=== PATIENT | female | born 1975 | race Caucasian/White ===

== ENCOUNTER → 2017-06-05 | Outpatient (REF) | payer BC ==
[2015-01-21 12:08] VITALS: BMI 23.4
[~2017-06-05] MED LIST: ACET500T68 PO; ASCO-182 PO; CALC-652 PO; CHOL500045 PO; FERR325T24 PO; IBUP-56 PO; IBUP800T37 PO; MULT-1335 PO; PER PO; SULF-198 PO; VITA1CAP46 PO
== END ==
LOC: ZZSENDIN 10:51
PROVIDERS: ATTEND Obstetrics & Gynecology
DX: K29.60 Other gastritis without bleeding (principal)
CPT/HCPCS: 86677

== ENCOUNTER → 2017-09-08 | Outpatient (CLI) | payer BC ==
[2015-01-21 12:08] VITALS: BMI 23.4
--- NOTE | 2017-09-09 08:20 | RADIOLOGY IMAGING REPORT ---
FACILITY: [facility] - [place] PATIENT NAME: THOMAS GREENE : [id number] MR: [id number] V: [id number] EXAM DATE: [id number] ORDERING PHYSICIAN: ALVIN IZQUIERDO TECHNOLOGIST: Delia Apodaca PROCEDURE:BILATERAL DIGITAL SCREENING MAMMOGRAM WITH CAD ASSISTED INTERPRETATION & 3D TOMOSYNTHESIS COMPARISON:Prior mammograms 09/03/16, 12/20/14, 12/14/14. INDICATIONS:SCREENING FINDINGS: A small amount of fibroglandular tissue is seen throughout the breasts. The parenchymal pattern has remained stable allowing for difference in mammographic technique & patient positioning. There is no evidence of malignant appearing mass, malignant appearing calcifications or other secondary sign of malignancy in either breast. DIAGNOSTIC CATEGORY 1--NEGATIVE. RECOMMENDATIONS: ROUTINE MAMMOGRAM AND CLINICAL EVALUATION. IMPRESSION: BIRADS 1: Negative. No significant abnormality is seen. Dictated by: Jacquie Garcia M.D. on 09/08/2017 at 16:13 Transcribed by: JUAN MIGUEL on 09/08/2017 at 16:22 Approved by: Jacquie Garcia M.D. on 09/09/2017 at 8:19 [facility]
== END ==
LOC: MAMO 02:03
PROVIDERS: ATTEND Obstetrics & Gynecology
DX: Z12.31 Encounter for screening mammogram for malignant neoplasm of breast (principal)
CPT/HCPCS: 77063; 77067

== ENCOUNTER → 2017-12-15 | Outpatient (CLI) | payer BC ==
[2015-01-21 12:08] VITALS: BMI 23.4
[~2017-12-15] MED LIST changes: +LACT1CAP6 PO; +LANS15CA32 PO
--- NOTE | 2017-12-15 17:49 | RADIOLOGY IMAGING REPORT ---
FACILITY: [facility] - [place] PATIENT NAME: Sheila Narayanan : 1975 MR: [id number] V: [id number] EXAM DATE: ORDERING PHYSICIAN: HANNAH BARKER TECHNOLOGIST: Location: [facility] [place] Patient: Sheila Narayanan : 1975 Visit/Account:[id number] Date of Sevice: 12/15/2017 EXAMINATION: Focused right upper quadrant ultrasound COMPARISON: None HISTORY: Gastroesophageal reflux. Findings: Standard right upper quadrant abdominal ultrasound is performed. Pancreas: Visualized portions of the pancreas are unremarkable. Liver and portal vein: Negative. Gallbladder and biliary system: No gallbladder stone or sludge. No wall thickening, pericholecystic f luid, or sonographic King's. The visualized common bile duct is not dilated. Visualized aorta and IVC: Negative. Kidneys: The right kidney measures 10.8 x 4.8 x 5.3 cm . No renal mass, stone, or hydronephrosis. Ascites: None. IMPRESSION: Negative right upper quadrant ultrasound. Report Dictated By: Michele Myers MD at 12/15/2017 5:44 PM Report E-Signed By: Michele Myers MD at 12/15/2017 5:45 PM [id number]
== END ==
LOC: US 04:11
PROVIDERS: ATTEND Surgery
DX: R07.89 Other chest pain (principal); K21.9 Gastro-esophageal reflux disease without esophagitis
CPT/HCPCS: 76705